=== PATIENT | male | born 1945 | race Caucasian/White ===

== ENCOUNTER → 2024-07-20 14:04 | Outpatient (REF) | payer OTHER, SELFPAY | LOC: HWRAD 14:04 | PROVIDERS: ATTENDING PHYSICIAN Family Medicine | DX: E78.2 Mixed hyperlipidemia (principal); I10 Essential (primary) hypertension; R53.1 Weakness | CPT/HCPCS: 93880 ==

== ENCOUNTER → 2024-08-20 16:08 | Outpatient (REF) | payer OTHER, SELFPAY | LOC: MRI 3T 16:08 | PROVIDERS: ATTENDING PHYSICIAN Family Medicine | DX: I10 Essential (primary) hypertension (principal); R53.1 Weakness; E78.2 Mixed hyperlipidemia | CPT/HCPCS: 70551 ==